=== PATIENT | male | born 1945 | race Caucasian/White ===

== ENCOUNTER 2016-09-19 14:02 | Emergency (ER) | payer MEDICARE, BC ==
[~2016-09-19 14:02] MED LIST: AFRIN15 ML NS; ALLOPURINOL300 MG PO; AMOXICILLIN500 M; ASPIRIN325 MG; ASPIRIN325 MG PO; BACTRIM DS TABL1 TAB PO; CELEBREX200 MG; CHLORPHEN4 MG; CO Q-1010 MG; COLCHICINE0.6 MG PO; CPM PO; CRESTOR5 MG; CRESTOR5 MG PO; ENALAPRIL MALEA20 MG; ENALAPRIL MALEA20 MG PO; GLUCOSAMINE & C1 CAP PO; GLUCOSAMINE750 MG; H PO; HYDROCHLOROTHIA25 MG; LOVAZA1 GM PO; MULTIVITAMIN1 TAB; MULTIVITAMIN1 TAB PO; NAPROXEN250 MG PO; OMEGA 3 FISH1 CAP.EC; OMEPRAZOLE20 M2 PO; OMEPRAZOLE20 MG PO; PERCOCET 5/3251 TAB PO; POTASSIUM CHLO10 MEQ; POTASSIUM GLUCONATE PO; PREVACID30 MG; ST. JOHN'S WOR150 MG; TYLENOL325 MG PO; TYLENOL500 MG; VICODIN 5/500 T1 TAB PO; VITAMIN D1000 UNIT; VITAMIN D3 PO; VITAMIN E400 UNIT; ZETIA10 MG PO; [UNRECOGNIZED DRUG - OTHER] PO
[2016-09-19 14:56] LABS: BASO % 0.3 % (0-2); EOS % 1.7 % (0-7); EOSINOPHIL ABSOLUTE COUNT 0.1 tho/cmm (0.0-0.7); HCT-HEMATOCRIT 35.4 % (36.0-53.5); HGB-HEMOGLOBIN 12.3 gm/dl (13.5-17.0); IMMATURE GRANULOCYTES ABSOLUTE 0.02 tho/cmm (0-0.03); IMMATURE GRANULOCYTES PERCENT 0.3 % (0-0.3); LYMPH % 32.7 % (20-45); LYMPH ABSOLUTE COUNT 2.3 tho/cmm (0.8-4.5); MCH (MEAN CORPUSCULAR HGB) 31.5 pg (28.0-32.0); MCHC MEAN CORPUSCULAR HGB CONC 34.7 % (32.0-36.0); MCV (MEAN CELL VOLUME) 90.5 fl (82.0-96.0); MEAN PLATELET VOLUME 9.4 cmc (9.4-12.4); MONOCYTE ABSOLUTE COUNT 0.7 tho/cmm (0.0-1.2); NEUTROPHIL ABSOLUTE COUNT 3.8 tho/cmm (1.6-8.0); NEUTROPHIL-AUTOMATED 3.8 tho/cmm (1.6-8.0); PLATELET COUNT 214 tho/cmm (150-450); RED BLOOD COUNT 3.91 mil/cmm (4.40-5.70); RED CELL DISTRIBUTION WIDTH 13.3 % (12.4-16.4); WHITE BLOOD COUNT 6.9 tho/cmm (4.0-10.0)
[2016-09-19] MEDS ORDERED: ENALAPRIL MALEA20 M1 PO (15:05)
[2016-09-19] MEDS ORDERED: ZYLOPRIM300 M1 PO (15:05)
[2016-09-19] MEDS ORDERED: OMEPRAZOLE20 M3 PO (15:05)
[2016-09-19] MEDS ORDERED: CHLORTHALIDONE25 M1 PO (15:05)
[2016-09-19] MEDS ORDERED: NORCO 5-325 TA1 EACH PO (15:06)
[2016-09-19] MEDS ORDERED: VOLTAREN100 G1 TOP (15:06)
[2016-09-19] MEDS ORDERED: FLUVASTATIN SOD20 MG PO (15:07)
[2016-09-19] MEDS ORDERED: GLUCOPHAGE XR500 M1 PO (15:07)
[2016-09-19] MEDS ORDERED: LEVEMIR FL100 UNIT/2 SC (15:07)
[2016-09-19] MEDS ORDERED: MOBIC15 M2 PO (15:08)
[2016-09-19] MEDS ORDERED: FLONASE ALLERG9.9 ML (15:08)
[2016-09-19 15:09] LABS: ANION GAP 14 mmol/L (0-20); BLOOD UREA NITROGEN 36 mg/dl (6-24); CALCIUM 8.8 mg/dl (8.5-10.5); CARBON DIOXIDE-VENOUS 26 mmol/L (22-32); CHLORIDE 105 mmol/l (96-110); CREATININE 1.36 mg/dl (0.60-1.30); GLUCOSE 157 mg/dL (70-110); MAGNESIUM 1.9 mg/dl (1.8-2.6); POTASSIUM 4.7 mmol/L (3.7-5.1); SODIUM 140 mmol/L (135-145); eGFR VALUE FOR BLACK 61 mL/Min
[2016-09-19] MEDS ORDERED: HUMALOG100 UNITS/ SC (15:10)
[2016-09-19] MEDS ORDERED: CATAPRES0.3 M1 PO (15:11)
[2016-09-19] MEDS ORDERED: ASPIRIN EC81 MG PO (15:11)
[2016-09-19] MEDS ORDERED: POTASSIUM GLUCONATE PO (15:12)
[2016-09-19] MEDS ORDERED: CHLOR-TRIMETON4 M1 PO (15:13)
[2016-09-19] MEDS ORDERED: MULTIVITAMINS1 EAC6 PO (15:14)
[2016-09-19] MEDS ORDERED: TYLENOL EXTRA500 M1 PO (15:14)
[2016-09-19] MEDS ORDERED: GLUCOSAMINE CH1 EAC8 PO (15:15)
[2016-09-19] MEDS ORDERED: FLAXSEED OIL PO (15:16)
[2016-09-19] MEDS ORDERED: OPCON-A EYE DRO15 M1 EACH EYE (15:17)
[2016-09-19] MEDS ORDERED: OMEGA-31000 M2 PO (15:17)
[2016-09-19] MEDS ORDERED: [UNRECOGNIZED DRUG - OTHER] PO (15:17)
[2016-09-19] MEDS ORDERED: VITAMIN K100 MC1 PO (15:18)
[2016-09-19] MEDS ORDERED: SAW PALMETTO450 M1 PO (15:18)
[2016-09-19] MEDS ORDERED: MELATONIN5 M5 PO (15:18)
== END 2016-09-19 16:16 ==
LOC: EDMED 14:02
PROVIDERS: Emergency Medicine
DX: R00.1 Bradycardia, unspecified (principal); R53.1 Weakness; T46.5X5A Adverse effect of other antihypertensive drugs, initial encounter; I10 Essential (primary) hypertension; E11.9 Type 2 diabetes mellitus without complications; Z88.5 Allergy status to narcotic agent; Z88.8 Allergy status to other drugs, medicaments and biological substances
CPT/HCPCS: J7030